=== PATIENT | female | born 1965 | race Caucasian/White ===

== ENCOUNTER 2019-08-22 10:32 | Emergency (ER) | payer OTHER, MEDICAID ==
[~2019-08-22] VITALS: Ht 152.4 cm; Wt 81.2 kg
[2019-08-22 10:42] VITALS: BP 143/77; Ht 152.4 cm; Wt 81.2 kg
== END 2019-08-22 13:07 | disposition home or self-care (01) ==
LOC: ED 10:32
DX: M54.5 Low back pain (principal); I10 Essential (primary) hypertension; Z88.6 Allergy status to analgesic agent; Z88.8 Allergy status to other drugs, medicaments and biological substances; Z87.442 Personal history of urinary calculi
CPT/HCPCS: J2270; J3490

== ENCOUNTER 2019-08-23 16:04 | Emergency (ER) | payer OTHER, MEDICAID ==
[~2019-08-23] VITALS: Ht 152.4 cm; Wt 80.3 kg
[2019-08-23 16:13] VITALS: BP 160/77; Ht 152.4 cm; Wt 80.3 kg
== END 2019-08-23 17:31 | disposition home or self-care (01) ==
LOC: ED 16:04
DX: M54.5 Low back pain (principal); G89.29 Other chronic pain; I10 Essential (primary) hypertension; N20.0 Calculus of kidney; Z85.819 Personal history of malignant neoplasm of unspecified site of lip, oral cavity, and pharynx; Z88.6 Allergy status to analgesic agent; Z88.8 Allergy status to other drugs, medicaments and biological substances
CPT/HCPCS: J1885; J3010